=== PATIENT | male | born 1940 | race Caucasian/White ===

== ENCOUNTER 2019-09-07 16:49 | Inpatient (IN) | payer OTHER, BC ==
[~2019-09-07] VITALS: Ht 177.8 cm; Wt 101.2 kg
[2019-09-07] MEDS ORDERED: ATORVASTATIN CA20 MG (17:25)
[2019-09-07] MEDS ORDERED: CELEBREX200MG (17:25)
[2019-09-07] MEDS ORDERED: SYNTHROID75 MCG (17:26)
[2019-09-07] MEDS ORDERED: LASIX20 MG (17:26)
[2019-09-07] MEDS ORDERED: DULOXETINE HCL40 MG (17:26)
[2019-09-07] MEDS ORDERED: LANOXIN125 MCG (17:26)
[2019-09-07] MEDS ORDERED: XARELTO10 MG (17:27)
[2019-09-14] MEDS ORDERED: XARELTO20 MG PO (14:02)
[2019-09-14] MEDS ORDERED: LIPITOR40 MG PO (14:02)
[2019-09-14] MEDS ORDERED: CARTIA XT240 MG PO (14:03)
[2019-09-14] MEDS ORDERED: CYMBALTA60 MG PO (14:03)
[2019-09-14] MEDS ORDERED: ISORDIL10 MG PO (14:03)
[2019-09-14] MEDS ORDERED: LOSARTAN POTASS25 MG PO (14:03)
== END 2019-09-14 14:44 | disposition home or self-care (01) | DRG 193 ==
LOC: ER 16:49 → EDSEX 17:18 → ER 17:18 → ICU 23:05 → MEDJ 09-13 19:08
PROVIDERS: ADMIT Internal Medicine
PROC: 4A033R1 Measurement of Arterial Saturation, Peripheral, Percutaneous Approach (ICD-10-PCS; principal; 2019-09-07)
PROC: 3E0F7GC Introduction of Other Therapeutic Substance into Respiratory Tract, Via Natural or Artificial Opening (ICD-10-PCS; 2019-09-07)
PROC: 0T9B70Z Drainage of Bladder with Drainage Device, Via Natural or Artificial Opening (ICD-10-PCS; 2019-09-07)
PROC: 8E0ZXY6 Isolation (ICD-10-PCS; 2019-09-07)
PROC: 5A09457 Assistance with Respiratory Ventilation, 24-96 Consecutive Hours, Continuous Positive Airway Pressure (ICD-10-PCS; 2019-09-08)
PROC: B246ZZZ Ultrasonography of Right and Left Heart (ICD-10-PCS; 2019-09-08)
PROC: 4A12X4Z Monitoring of Cardiac Electrical Activity, External Approach (ICD-10-PCS; 2019-09-13)
DX: J10.1 Influenza due to other identified influenza virus with other respiratory manifestations (principal); I50.43 Acute on chronic combined systolic (congestive) and diastolic (congestive) heart failure; J96.01 Acute respiratory failure with hypoxia; J44.1 Chronic obstructive pulmonary disease with (acute) exacerbation; J45.41 Moderate persistent asthma with (acute) exacerbation; Z99.11 Dependence on respirator [ventilator] status; B37.41 Candidal cystitis and urethritis; I11.0 Hypertensive heart disease with heart failure; I48.0 Paroxysmal atrial fibrillation; I08.0 Rheumatic disorders of both mitral and aortic valves; M62.81 Muscle weakness (generalized); G47.33 Obstructive sleep apnea (adult) (pediatric); R31.0 Gross hematuria; E66.01 Morbid (severe) obesity due to excess calories; E03.8 Other specified hypothyroidism; E11.65 Type 2 diabetes mellitus with hyperglycemia; Z79.4 Long term (current) use of insulin; Z79.01 Long term (current) use of anticoagulants